=== PATIENT | male | born 1950 | race Caucasian/White ===

== ENCOUNTER → 2017-04-25 | Outpatient (CLI) | payer OTHER, BC ==
[~2017-04-25] MED LIST: ASCO500T16 PO
--- NOTE | 2017-04-25 14:48 | DIAGNOSTIC IMAGING REPORT ---
CHEST 2 VIEWS ROUTINE HISTORY: Fever. COMPARISON: None. FINDINGS: The lungs are mildly hyperexpanded. No focal lung consolidations. No pleural effusions. No pneumothorax. The heart is normal in size. No evidence for pulmonary edema. IMPRESSION: No acute process. Electronically signed by: Norman So M.D. 04/25/2017 2:47 PM Dictated Date/Time: 04/25/2017 2:40 PM
== END | disposition home or self-care (01) ==
LOC: C.RADBC 14:23
PROVIDERS: ATTEND Physician Assistant Medical
DX: R50.9 Fever, unspecified (principal)